=== PATIENT | male | born 1995 | race Caucasian/White ===

== ENCOUNTER 2024-07-22 04:46 | Emergency (ER) | payer OTHER ==
[~2024-07-22] VITALS: Ht 188 cm; Wt 84.0 kg
[2024-07-22 05:21] VITALS: O2SAT 100
[2024-07-22 05:23] VITALS: BP 150/99; PULSE 63; RESP 18; TEMP 36.9; O2SAT 100
[2024-07-22] MEDS ORDERED: CARB400T13 MT (06:01)
[2024-07-22] MEDS ORDERED: GABA-1180 MT (06:01)
== END 2024-07-22 06:12 | disposition home or self-care (01) ==
LOC: ER 04:46
DX: F41.9 Anxiety disorder, unspecified (principal); Z76.0 Encounter for issue of repeat prescription
CPT/HCPCS: 99281

== ENCOUNTER 2024-10-11 12:42 | Emergency (ER) | payer MEDICAID, OTHER ==
[~2024-10-11] VITALS: Ht 188 cm; Wt 81.0 kg
[~2024-10-11 12:42] MED LIST: CARB400T13 MT; GABA-1180 MT
[2024-10-11 12:48] VITALS: O2SAT 98
[2024-10-11 12:51] VITALS: BP 128/78; PULSE 69; RESP 18; TEMP 36.7; O2SAT 99
[2024-10-11] MEDS ORDERED: CARB400T13 MT (14:37)
[2024-10-11] MEDS ORDERED: GABA-1180 MT ×2 (14:37→14:50)
== END 2024-10-11 15:48 | disposition home or self-care (01) ==
LOC: ER 12:42
DX: R56.9 Unspecified convulsions (principal); Z76.0 Encounter for issue of repeat prescription; Z79.899 Other long term (current) drug therapy
CPT/HCPCS: 99281; 99282; 99283